=== PATIENT | female | born 2000 | race Caucasian/White ===

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

== ENCOUNTER 2021-04-03 14:19 | Outpatient (CLI) | payer OTHER | END 2021-04-03 14:20 | disposition home or self-care (01) | LOC: BICULT 14:19 | PROVIDERS: ATTEND Family Medicine | DX: O09.892 Supervision of other high risk pregnancies, second trimester (principal); Z3A.25 25 weeks gestation of pregnancy | CPT/HCPCS: 76805 ==